=== PATIENT | female | born 1965 | race Caucasian/White ===

== ENCOUNTER 2018-01-09 08:00 | Outpatient (RCR) ==
--- NOTE | 2018-01-08 15:41 | RS.OPPTEV2 ---
Date of Note: 01/08/18 Visit #: 1 Date of Evaluation: 01/08/18 Payer Source: Insurance Treatment Diagnosis: Lumbar radiculopathy History of Condition/Mechanism of Injury:: Patient reports progressive low back pain and radiating symptoms. Reports numbness throughout the inner thighs periodically for the last few months. She attended therapy in this department for similiar symptoms in 2013, with good results. Prior Level of Function.....Patient was independent with: ADL's, Self Care, Work /Vocation, Caregiving, Ambulation/Mobility, Community Integration/Access Functional Limitations: Sleep, Self Care, ADL's, Reaching, Pushing, Pulling, Lifting, Carrying, Sitting, Standing, Bending, Squatting, Ambulation, Community Access/Integration Current Subjective/complaints:: Bessie reports low back pain and radiating symptoms into the LE's. She reports periodic numbness in the inner thighs and when prompted, admits to recent issues with bladder control. Reports the feeling of weakness in her legs with prolonged walking and standing. States she had difficulty shaving her legs and stumbles often, because of impaired sensation in the LE's. She has not had an MRI at this time, because she cannot afford the co-payment. 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 She works 5-6 days a week depending on the needs of her employer. She is unable to afford taking off from work. She reports a great deal of difficulty sleeping due to having to frequently change positions due to pain. Medical History Medical History: Hypertension Medical History Comments:: Mitro valve prolapse Surgical History: Cholecystectomy, Tonsillectomy, (X2) Smoking Status: Current some day smoker Hx Home Medications: Lortab 7.5, Buspar, Flexeril Patient's Goals: Her goal is to get relief of LE symptoms and back pain. Pain Assessment - Pain Description Pain Location: low back and LE pain Pain Description: Radiating Current Pain Intensity: 6/10 Worst Pain Intensity: 10/10 Functional Outcome Measure Oswestry LBP: 52 - G Codes & Severity Modifier G Codes & Modifier: NA Source of G Code score: NA Observation - Observation Posture: Forward Head, Rounded Shoulders, Decreased Lumbar Lordosis Gait - Gait Pattern Gait Comments: Patient demonstrates slight forward flexed posture. She ambulates independently without an assistive device. - ROM Lumbar Flexion: Hand reach to Mid-Shins Sidebending to Left: Reach to Mid-thigh Sidebending to Right: Reach to Lateral Joint Line Comments: Lumbar extension is WFL's. Lumbar flexion demonstrates minimal mobility of the lumbar spine. Patient reports significant increased discomfort with end range right sidebending. Left sidebending is more limited, but patient reports no increased discomfort. - Strength Trunk Rotation: 4- Good- Comments: Bilateral hip flexion, IR, and ER 4/5, All else 4+/5. Bilateral quads and HS 4+/5, ankles 4+/5 to 5/5. - Special Tests ISSAC Test: Negative Right, Positive Left SLR Test: Negative Left, Negative Right Seated Dural Stretch Test: Negative Left, Negative Right SI Joint Compression: Positive Palpation Comments:: Tenderness reported with palpation along the right lumbosacral region and with Central PA's to the lower lumbar spinous processes. Sensation - Sensation Comments: Reports currently having numbness along bilateral inner thighs. Also reports less sensation along posterior and lateral aspect of both legs. Additional Comments: Additional Comments: SLR in supine: left to 40 degrees, right to 45-50 degrees. Interventions - Exercise/Activities/Manual Therapy Exercises/Activities: Patient instructed in HS stretch and pelvic tilts. Discussed symptoms of Cauda Equina Syndrome with patient and advised her to contact her physician's office if she has bladder or bowel incontinence. Manual Therapy: NA HOME EXERCISE PROGRAM: HS stretch and pelvic tilts - Charges Timed Code Treatment Minutes: 0 mins Total Treatment Time: 48 mins Procedures billed for this date of service:: EVAL medium EVALUATION COMPLEXITY LEVEL EVALUATION COMPLEXITY LEVEL: HISTORY: Medium (HX of back pain, progressive LE symptoms), EXAM OF BODY SYSTEMS: Medium, CLINICAL PRESENTATION: Medium, CLINICAL DECISION MAKING: Medium Assessment Assessment: Patient presents to therapy with a diagnosis of Radiculopathy of lumbar region. She reports radiating symptoms into the LE's, including periodic inner thigh numbness. Also admits to mild bladder control issues recently. She demonstrates tenderness along the lumbosacral region, greater on the right, and an imbalance of HS muscle length. Bilateral hips present to be weak. Also presents with a positive ISSAC's on the left LE. She presents with likely overlapping symptoms from the lumbar spine and pelvic dysfunction. She may benefit from stretching and strengtheing exercises to the lumbar spine and LE's to address the above issues and decrease her symptoms. Short Term Goals Goal #1: Bilateral SLR increased to 50 degrees. Goal to be met by: 01/22/18 Goal #2: Patient to report minimal radiating symptoms. Goal to be met by: 01/22/18 Goal #3: Tenderness decreased to minimal along lumbar paraspinals. Goal to be met by: 01/22/18 Prison Goals Goal #1: Patient knows HEP and to continue ex's to maintain functional level at D/C. Goal to be met by: 02/17/18 Goal #2: Score on Oswestry score improved to 30. Goal to be met by: 02/17/18 Goal #3: Patient able to perform all work activities with only minimal discomfort. Goal to be met by: 02/17/18 Goal #4: Patient able to sleep 6 hours without interruption from back pain. Goal to be met by: 02/17/18 Plan - Treatment to be Provided Procedures: Therapeutic Exercises, Therapeutic Activity, Neuromuscular Rehab, Manual Therapy, Patient Education Modalities: Electrical Stimulation, Ultrasound/Phonophoresis, Cryotherapy, Hot Packs - Treatment Plan Frequency: 2-3 X week Duration: 4 weeks ORDER # VISITS AND/OR THROUGH DATE: 02/17/18 - Treatment Code (1) Lumbar radiculopathy Code(s): M54.16 - RADICULOPATHY, LUMBAR REGION Comments: M54.16 (2) Bilateral leg paresthesia Code(s): R20.2 - PARESTHESIA OF SKIN Comments: R20.2
--- NOTE | 2018-01-09 09:54 | RS.OPPTDN ---
Subjective Date of Note: 01/09/18 Visit #: 2 Date of Evaluation: 01/08/18 Payer Source: Insurance Treatment Diagnosis: Lumbar radiculopathy Current Subjective/complaints:: Reports numbness bilateral anterior medial thighs. States she has pain at the lowback and S-I joint region, and often hes bilateral LE aching at night after work. States LB and LE aching prevents her from getting a full nights sleep. Pain Assessment - Pain Description Pain Location: Lowback and hips. Pain Description: Aching Current Pain Intensity: 5/10 - Treatment Modality: Ultrasound Parameters/Method Applied: [id number] to the bilateral lower lumbar paraspinals and S-I joints following EX. Patient Position: Right Sidelying - Heat/Cryotherapy Treatment: Hot Pack ([id number] prior to EX and US. Patient in supine with LE's elevated. ) Interventions - Exercise/Activities/Manual Therapy Exercises/Activities: Patient assisted with bilateral HS, SKTC, piriformis, and figure 4 hip stretching. MET of isometric left hip extension and right hip flexion. Bridging and pelvic tilts. Isometric hip add. Discussed symptoms, benefits of flexibility and MET exercise, and advised patient to contact physician if symptoms get worse or she has loss of function. Total minutes of Exercise: 18mins Manual Therapy: NA HOME EXERCISE PROGRAM: HS stretch and pelvic tilts - Objective Findings Observations,measurements,etc.: HS, piriformis, SKTC, and figure 4 hip stretch. Isometric hip add, bridging, and pelvic tilts. - Charges Timed Code Treatment Minutes: 28mins Total Treatment Time: 43mins Procedures billed for this date of service:: HP, US, EX Assessment: Patient motivated to work on HEP and receptive to patient education. Patient Education: Body/Joint mechanics, Home Exercise Program, Home Safety, Activity Modification Comments: Patient education of dx, mechanics, safety, and HEP. Patient given copy of HEP. Patient demonstrates compliance with HEP?: Yes Short Term Goals Goal #1: Bilateral SLR increased to 50 degrees. Goal to be met by: 01/22/18 Goal #2: Patient to report minimal radiating symptoms. Goal to be met by: 01/22/18 Goal #3: Tenderness decreased to minimal along lumbar paraspinals. Goal to be met by: 01/22/18 Half-Way Goals Goal #1: Patient knows HEP and to continue ex's to maintain functional level at D/C. Goal to be met by: 02/17/18 Progress towards goal: Progressing Goal #2: Score on Oswestry score improved to 30. Goal to be met by: 02/17/18 Goal #3: Patient able to perform all work activities with only minimal discomfort. Goal to be met by: 02/17/18 Goal #4: Patient able to sleep 6 hours without interruption from back pain. Goal to be met by: 02/17/18 Plan PLAN OF CARE EXPIRES ON:: 02/17/18 ORDER # VISITS AND/OR THROUGH DATE: 02/17/18 PLAN: Continue modalities and progress exercise to reduce pain and increase patients functional activity level.
== END 2018-01-10 23:59 ==
PROVIDERS: ATTEND Physical Medicine & Rehabilitation
DX: M54.16 Radiculopathy, lumbar region (principal); R20.2 Paresthesia of skin

== ENCOUNTER 2018-01-31 07:56 | Outpatient (CLI) ==
--- NOTE | 2018-01-31 09:33 | MRI ---
EXAM: MRI lumbar spine without IV contrast. DATE: 31 January 2018. HISTORY: Lumbar radiculopathy. TECHNIQUE: Sagittal axial T1W and T2W sequences of the lumbar spine along with sagittal IR and coron al T2W sequences were obtained using 1.5 Cookie magnet. No IV contrast. COMPARISON: Chest x-ray 05/19/2012. CT abdomen/pelvis 31 October 2009. FINDINGS: There are four [id number] lumbar vertebra. No lumbar scoliosis is evident. No acute lumbar fracture, subluxation, osseous malignancy, or pars interarticularis defect is demonstrated. Lumbar vertebra are normal in height. Bone marrow signal is overall normal. Chronic Schmorl's nodes are seen at L2 and L3. Moderate/marked disc space narrowing and small anterior osteophytes are pres ent at L4-S1. Remaining intervertebral discs are normal in height. No acute sacral fracture or stre ss reaction is identified. SI joints are unremarkable. Conus medullaris terminates at T12-L1. Visi ble spinal cord is normal. No retroperitoneal lymphadenopathy, paraspinal mass, or aortic aneurysm is detected. Paraspinal musc ulature is symmetric bilaterally. Visible portions of the liver, spleen, adrenal glands and kidneys are normal. Small number of descending and sigmoid colon diverticuli are present. Segmental analysis: T11-12: Minor posterior disc bulge and mild facet arthropathy cause minor right foraminal narrowing. No central canal stenosis. T12-L1: Normal. L1-2: Normal. L2-3: Minor concentric disc bulge with superimposed left paracentral disc protrusion (2.3 mm AP x 4. 7 mm transverse) and minor facet arthropathy cause minimal right and mild/moderate left foraminal shannon noses. No central canal stenosis. L3-4: Small posterior to foraminal disc bulge and minor facet arthropathy cause mild central canal s tenosis and mild/moderate narrowing at the opening to each foramen. L4-S1: Small concentric disc bulge, superimposed right paracentral disc extrusion (5.5 mm AP right x 7 mm transverse x 3 mm behind the S1 superior endplate), mild facet arthropathy and mild ligamentum flavum hypertrophy cause mild central canal stenosis and moderate/marked narrowing at the opening to each foramen. Each L4 nerve root appears to contact the disc bulge near the lateral margin of the fo ramen. IMPRESSIONS: 1. Four lumbar vertebra (normal variation). 2. L-spine mild spondylosis, minor/mild facet arthropathy and multilevel DDD (mervat. L5-S1). 3. Multilevel lumbar foraminal stenoses as described above. Each L4 nerve root contacts the disc bu lge near the foramen, and could be sources for pain/radiculopathy. 4. And mild central canal stenoses at L3-4 and L4-5. 5. Chronic, small Schmorl's nodes at L2 and L3. 6. Mild descending and sigmoid colon diverticulosis.
== END 2018-01-31 07:57 | disposition home or self-care (01) ==
LOC: RAD 07:56
PROVIDERS: ATTEND Physical Medicine & Rehabilitation
DX: M54.16 Radiculopathy, lumbar region (principal)

== ENCOUNTER 2018-02-06 08:00 | Outpatient (RCR) ==
--- NOTE | 2018-01-15 10:24 | RS.OPPTDN ---
Subjective Date of Note: 01/15/18 Visit #: 3 Date of Evaluation: 01/08/18 Payer Source: Insurance Treatment Diagnosis: Lumbar radiculopathy Current Subjective/complaints:: Patient reports not sleeping well last night due to leg cramps.She is doing her HEP as recommended. Pain Assessment - Pain Description Pain Location: lumbar and both LE's Pain Description: Radiating Current Pain Intensity: 8/10 before treatment Other Comments regarding Pain:: 4/10 after PT session - Treatment Modality: Ultrasound Parameters/Method Applied: 10 mins. @ 1.5 w/cm2 to lumbar ,continuous mode Patient Position: Right Sidelying - Heat/Cryotherapy Treatment: Hot Pack (20 mins. prior to US and exercises) Interventions - Exercise/Activities/Manual Therapy Exercises/Activities: Patient instructed in pelvic tilts,SKTC,DKTC,piriformis stretches with tactile cues for hand placement,90/90 hamstring stretches,LTR in hooklying position. Total minutes of Exercise: 20 Manual Therapy: NA Total minutes of Manual Therapy: 0 HOME EXERCISE PROGRAM: HS stretch and pelvic tilts - Charges Timed Code Treatment Minutes: 30 Total Treatment Time: 50 Procedures billed for this date of service:: hp,US,ex Assessment: Patient reports relief after treatment today.We again discussed the urinary incontinence as she reports today it is more frequent.She has a Charanjit appt this Saturday,and we emphasized for her to inform the fo her symptoms.She reports stretch discomfort ,but no elevation of back or leg pain while doing the exercises.She requires tactile and verbal cues for proper piriformis stretch. Patient Education: Education of diagnosis, Body/Joint mechanics, Home Exercise Program, Home Safety, Activity Modification, Education of Plan of Care Patient demonstrates compliance with HEP?: Yes Short Term Goals Goal #1: Bilateral SLR increased to 50 degrees. Goal to be met by: 01/22/18 Progress towards Goal:: Progressing Goal #2: Patient to report minimal radiating symptoms. Goal to be met by: 01/22/18 Progress towards Goal:: No Change Goal #3: Tenderness decreased to minimal along lumbar paraspinals. 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 Goal to be met by: 02/17/18 Progress towards goal: Progressing Goal #2: Score on Oswestry score improved to 30. Goal to be met by: 02/17/18 Goal #3: Patient able to perform all work activities with only minimal discomfort. Goal to be met by: 02/17/18 Goal #4: Patient able to sleep 6 hours without interruption from back pain. Goal to be met by: 02/17/18 Plan PLAN OF CARE EXPIRES ON:: 02/17/18 ORDER # VISITS AND/OR THROUGH DATE: 02/17/18 PLAN: Continue PT to reduce /eliminate back pain,educate patient for improved body mechanics for safer work tasks.
--- NOTE | 2018-01-16 12:07 | RS.OPPTDN ---
Subjective Date of Note: 01/16/18 Visit #: 4 Date of Evaluation: 01/08/18 Payer Source: Insurance Treatment Diagnosis: Lumbar radiculopathy Current Subjective/complaints:: Patient reports a mild improvement in back pain , but no improvement in radicular symptoms. Pain Assessment - Pain Description Pain Location: back pain and bilateral LE pain Current Pain Intensity: 6/10 - Treatment Modality: Ultrasound Parameters/Method Applied: [id number] US at 1.5w/cm2 to the bilateral lumbar paraspinals. Patient Position: Right Sidelying - Heat/Cryotherapy Treatment: Hot Pack ([id number] to the lowback prior to US and EX. Patient in supine. ) Interventions - Exercise/Activities/Manual Therapy Exercises/Activities: Assisted stretching of the bilateral HS, SKTC, DKTC, piriformis, and figure 4 stretching. Pelvic tilts, isometric hip flexion, isometric hip adduction. Cues for proper muscle engagement with core/isometric exercises. Isometric trunk rotation. Total minutes of Exercise: 14mins Manual Therapy: NA HOME EXERCISE PROGRAM: HS stretch and pelvic tilts, piriformis stretch - Charges Timed Code Treatment Minutes: 14mins Total Treatment Time: 34mins Procedures billed for this date of service:: HP, Estim unatteded, EX Assessment: Patient reporting some improvement in back pain. She is encouraged to report radicular symptoms to physician. Patient Education: Education of diagnosis, Body/Joint mechanics, Home Exercise Program Patient demonstrates compliance with HEP?: Yes Short Term Goals Goal #1: Bilateral SLR increased to 50 degrees. Goal to be met by: 01/22/18 Progress towards Goal:: Progressing Goal #2: Patient to report minimal radiating symptoms. Goal to be met by: 01/22/18 Progress towards Goal:: No Change Goal #3: Tenderness decreased to minimal along lumbar paraspinals. 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 Goal to be met by: 02/17/18 Progress towards goal: Progressing Goal #2: Score on Oswestry score improved to 30. Goal to be met by: 02/17/18 Goal #3: Patient able to perform all work activities with only minimal discomfort. Goal to be met by: 02/17/18 Goal #4: Patient able to sleep 6 hours without interruption from back pain. Goal to be met by: 02/17/18 Plan PLAN OF CARE EXPIRES ON:: 02/17/18 ORDER # VISITS AND/OR THROUGH DATE: 02/17/18 PLAN: Continue modalities and progressive exercise to reduce pain and increase patients functional activity level at work and home.
--- NOTE | 2018-01-20 16:18 | RS.OPPTDN ---
Subjective Date of Note: 01/20/18 Visit #: 5 Date of Evaluation: 01/08/18 Payer Source: Insurance Treatment Diagnosis: Lumbar radiculopathy Current Subjective/complaints:: Patient reports busy day at work,is hurting alot ,with the tingling going dowm below the knees today.She had follow -up appt. last Saturday,is scheduled for MRI. Pain Assessment - Pain Description Pain Location: lumbar and both LE's Pain Description: Radiating, Aching, Chronic Current Pain Intensity: 8/10 Other Comments regarding Pain:: 5/10 when supine or sidelying - Treatment Modality: Ultrasound Parameters/Method Applied: 10 mins. @ 1.5 w/cm2 ,continuous mode to lumbar region ( L4,L5,S1 level ) Patient Position: Right Sidelying - Heat/Cryotherapy Treatment: Hot Pack (20 mins. prior to US and exercises) Interventions - Exercise/Activities/Manual Therapy Exercises/Activities: 20 mins. of gentle stretches including pelvic tilts,SKTC, DKTC,hamstring stretches. Total minutes of Exercise: 20 Manual Therapy: NA Total minutes of Manual Therapy: 0 HOME EXERCISE PROGRAM: HS stretch and pelvic tilts, piriformis stretch - Charges Timed Code Treatment Minutes: 30 Total Treatment Time: 50 Procedures billed for this date of service:: hp,US,ex 1 Assessment: Patient reports relief with large bolster under knees when on her back,but very tender to palpate today at the L4,L5,S1 level.The exercises do not elevate her pain ,but also do not relieve her pain today.The radiculopathy is worsened since last session, now below the knees.Instructed to try to sleep with the LE's elevated as high as possible for some relief. Patient Education: Education of diagnosis, Body/Joint mechanics, Home Exercise Program, Home Safety, Activity Modification, Education of Plan of Care Patient demonstrates compliance with HEP?: Yes Short Term Goals Goal #1: Bilateral SLR increased to 50 degrees. Goal to be met by: 01/22/18 Progress towards Goal:: Progressing Goal #2: Patient to report minimal radiating symptoms. Goal to be met by: 01/22/18 Progress towards Goal:: No Change Goal #3: Tenderness decreased to minimal along lumbar paraspinals. 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 Goal to be met by: 02/17/18 Progress towards goal: Progressing Goal #2: Score on Oswestry score improved to 30. Goal to be met by: 02/17/18 Goal #3: Patient able to perform all work activities with only minimal discomfort. Goal to be met by: 02/17/18 (varies ) Goal #4: Patient able to sleep 6 hours without interruption from back pain. Goal to be met by: 02/17/18 Progress towards goal: No Change Plan PLAN OF CARE EXPIRES ON:: 02/17/18 ORDER # VISITS AND/OR THROUGH DATE: 02/17/18 PLAN: Contine PT to reduce pain in the back and LE's.
--- NOTE | 2018-01-23 09:26 | RS.OPPTDN ---
Subjective Date of Note: 01/23/18 Visit #: 6 Date of Evaluation: 01/08/18 Payer Source: Insurance Treatment Diagnosis: Lumbar radiculopathy Current Subjective/complaints:: Patient reports continued numbness in the bilateral anterior upper thigh. States she worked yesterday and back pain and radicular symptoms seems aggravated. Following Estim today, patient reports she feels more mobile and has no back pain. Pain Assessment - Pain Description Pain Location: lowback, hips, numbness anterior thighs Current Pain Intensity: mod, no back pain after treatment - Treatment Modality: Electrical Stim Unattended Parameters/Method Applied: [id number] HVGC to 115p.v. with 4 large pads cross current to the bilateral lowback and S-I joints with HP prior to EX. Patient Position: Supine - Heat/Cryotherapy Treatment: Hot Pack (with Estim ) Interventions - Exercise/Activities/Manual Therapy Exercises/Activities: 16mins. of gentle stretches including hamstring, SKTC, DKTC, piriformis, and LTR. Isometric hip add and pelvic tilts. Total minutes of Exercise: 16mins Manual Therapy: NA HOME EXERCISE PROGRAM: HS stretch and pelvic tilts, piriformis stretch - Charges Timed Code Treatment Minutes: 16mins Total Treatment Time: 40mins Procedures billed for this date of service:: HP, Estim unattended, EX Assessment: Modalities and stretching giving patient some temporary relieft of back pain. Numbness continues in the anterior upper thighs without improvement. Patient Education: Body/Joint mechanics, Home Exercise Program, Home Safety, Activity Modification Comments: Patient education focus on rest and gentle exercise today as patient is off work. Also, instruction of safe lifting and body mechanics with work activity. Patient demonstrates compliance with HEP?: Yes Short Term Goals Goal #1: Bilateral SLR increased to 50 degrees. Goal to be met by: 01/22/18 Progress towards Goal:: Progressing Goal #2: Patient to report minimal radiating symptoms. Goal to be met by: 01/22/18 Progress towards Goal:: No Change Goal #3: Tenderness decreased to minimal along lumbar paraspinals. 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 Goal to be met by: 02/17/18 Progress towards goal: Partially Met Goal #2: Score on Oswestry score improved to 30. Goal to be met by: 02/17/18 Goal #3: Patient able to perform all work activities with only minimal discomfort. Goal to be met by: 02/17/18 (varies ) Goal #4: Patient able to sleep 6 hours without interruption from back pain. Goal to be met by: 02/17/18 Progress towards goal: No Change Plan PLAN OF CARE EXPIRES ON:: 02/17/18 ORDER # VISITS AND/OR THROUGH DATE: 02/17/18 PLAN: Continue with treatment in attempt to reduce pain and radicular symptoms.
--- NOTE | 2018-01-27 09:02 | RS.OPPTDN ---
Subjective Date of Note: 01/27/18 Visit #: 7 Date of Evaluation: 01/08/18 Payer Source: Insurance Treatment Diagnosis: Lumbar radiculopathy Current Subjective/complaints:: Patient reports having a bad weekend. States back pain is high and she feels like her muscles are swollen at the right upper gluteal area. She continues to report numbness at the anterior thighs, such as the "saddle" pattern. Pain Assessment - Pain Description Pain Location: lowback and upper gluts Pain Description: Aching, Acute Current Pain Intensity: 9/10 prior to and 6/10 following treatment Other Comments regarding Pain:: Patient reports pain at 9-10/10 o tana the weekend. States is continues to be high this morning. She reports modalities and gentle stretching decreased her pain to 6/10. - Treatment Modality: Electrical Stim Unattended Parameters/Method Applied: [id number] HVGC to 145p.v. with 4 large pads, cross current, to the bilateral lower lumbar paraspinals and S-I joints with HP. Patient Position: Supine - Heat/Cryotherapy Treatment: Hot Pack (with Estim ) Interventions - Exercise/Activities/Manual Therapy Exercises/Activities: Gentle stretches of hamstring, SKTC, DKTC, piriformis, and LTR. Isometric hip add and pelvic tilts. No new additions today. Total minutes of Exercise: 12mins Manual Therapy: NA HOME EXERCISE PROGRAM: HS stretch and pelvic tilts, piriformis stretch - Charges Timed Code Treatment Minutes: 12mins Total Treatment Time: 32mins Procedures billed for this date of service:: HP, Estim unattended, EX Assessment: Patient consistently reports numbness in the inner thigh and a high level of LBP over the weekend. Patient Education: Education of diagnosis, Home Exercise Program Comments: Patient has been instructed that should her radicular symptoms worsen or she lose bowel or bladder control, to go to the nearest ER for medical treatment. Patient demonstrates compliance with HEP?: Yes Short Term Goals Goal #1: Bilateral SLR increased to 50 degrees. Goal to be met by: 01/22/18 Progress towards Goal:: Progressing Goal #2: Patient to report minimal radiating symptoms. Goal to be met by: 01/22/18 Progress towards Goal:: No Change Goal #3: Tenderness decreased to minimal along lumbar paraspinals. 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 Goal to be met by: 02/17/18 Progress towards goal: Partially Met Goal #2: Score on Oswestry score improved to 30. Goal to be met by: 02/17/18 Goal #3: Patient able to perform all work activities with only minimal discomfort. Goal to be met by: 02/17/18 (varies ) Goal #4: Patient able to sleep 6 hours without interruption from back pain. Goal to be met by: 02/17/18 Progress towards goal: No Change Plan PLAN OF CARE EXPIRES ON:: 02/17/18 ORDER # VISITS AND/OR THROUGH DATE: 02/17/18 PLAN: See patient this week and she will haave an MRI on Saturday.
--- NOTE | 2018-01-30 09:04 | RS.OPPTDN ---
Subjective Date of Note: 01/30/18 Visit #: 8 Date of Evaluation: 01/08/18 Payer Source: Insurance Treatment Diagnosis: Lumbar radiculopathy Current Subjective/complaints:: Patient reports the tingling in her legs is terrible,also still having urinary incontinence/frequency. Pain Assessment - Pain Description Pain Location: both legs,anterior thighs,pelvic girdle region Pain Description: Radiating, Aching, Chronic Current Pain Intensity: 7/10 Other Comments regarding Pain:: 4/10 after session today Interventions - Exercise/Activities/Manual Therapy Exercises/Activities: Gentle stretches of hamstring, SKTC, DKTC, piriformis, and LTR. Isometric hip add and pelvic tilts. Total minutes of Exercise: 20 Manual Therapy: NA Total minutes of Manual Therapy: 0 HOME EXERCISE PROGRAM: HS stretch and pelvic tilts, piriformis stretch - Charges Timed Code Treatment Minutes: 30 Total Treatment Time: 50 Procedures billed for this date of service:: hp,US,ex 1 Assessment: Patient reports relief after session today,no elevation of pain doing exercises in supine.She reports the tingling /pain generally increases the longer she is on her feet,and also with prolonged sitting.She is vry compliabnt to all recommendations.She is scheduled to have MRI tomorrow. Patient Education: Body/Joint mechanics, Home Exercise Program, Home Safety, Activity Modification, Education of Plan of Care Patient demonstrates compliance with HEP?: Yes Short Term Goals Goal #1: Bilateral SLR increased to 50 degrees. Goal to be met by: 01/22/18 Progress towards Goal:: Progressing Goal #2: Patient to report minimal radiating symptoms. Goal to be met by: 01/22/18 Progress towards Goal:: No Change Goal #3: Tenderness decreased to minimal along lumbar paraspinals. 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 Goal to be met by: 02/17/18 Progress towards goal: Partially Met Goal #2: Score on Oswestry score improved to 30. Goal to be met by: 02/17/18 Goal #3: Patient able to perform all work activities with only minimal discomfort. Goal to be met by: 02/17/18 (varies ) Goal #4: Patient able to sleep 6 hours without interruption from back pain. Goal to be met by: 02/17/18 Progress towards goal: No Change Plan PLAN OF CARE EXPIRES ON:: 02/17/18 ORDER # VISITS AND/OR THROUGH DATE: 02/17/18 PLAN: Continue PT to reduce/eliminate LBP.
--- NOTE | 2018-02-05 08:12 | RS.CXNS ---
Date of scheduled appointment: 02/05/18 Type: Cancel Reason for Cancel/NS: Called ,left message ,cancelled due to LE/back pain.
--- NOTE | 2018-02-06 09:01 | RS.OPPTDN ---
Subjective Date of Note: 02/06/18 Visit #: 9 Date of Evaluation: 01/08/18 Payer Source: Insurance Treatment Diagnosis: Lumbar radiculopathy Current Subjective/complaints:: Patient reports she has not heard from the MRI results at this time.She continues to report finding any position of relief from the back pain .She still reports the urinary incontinence ,and the inability to stop the flow. Pain Assessment - Pain Description Pain Location: lumbar,both LE's Pain Description: Radiating, Aching, Chronic Current Pain Intensity: /10 - Treatment Modality: Ultrasound Parameters/Method Applied: 10 mins. @ 1.5 w/cm2,continuous mode to lumbar Patient Position: Right Sidelying - Heat/Cryotherapy Treatment: Hot Pack (20 mins. prior to US) Interventions - Exercise/Activities/Manual Therapy Exercises/Activities: HEP review only todayGentle stretches of hamstring, SKTC, DKTC, piriformis, and LTR. Isometric hip add and pelvic tilts.Patient reports doing them without difficulty. Total minutes of Exercise: 0 Manual Therapy: NA HOME EXERCISE PROGRAM: HS stretch and pelvic tilts, piriformis stretch - Charges Timed Code Treatment Minutes: 10 Total Treatment Time: 30 Procedures billed for this date of service:: hp,US Assessment: Patient is motivated to improve ,doing her HEP consistently,but reports only gets very minimal relief from LBP and radiculopathy.We discussed initiating the D/C plan if no change next week. Patient Education: Education of Plan of Care Patient demonstrates compliance with HEP?: Yes Short Term Goals Goal #1: Bilateral SLR increased to 50 degrees. Goal to be met by: 01/22/18 (does elicit pain bilaterally) Progress towards Goal:: No Change Goal #2: Patient to report minimal radiating symptoms. Goal to be met by: 01/22/18 Progress towards Goal:: No Change Goal #3: Tenderness decreased to minimal along lumbar paraspinals. 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 Goal to be met by: 02/17/18 Progress towards goal: Met Goal #2: Score on Oswestry score improved to 30. Goal to be met by: 02/17/18 Goal #3: Patient able to perform all work activities with only minimal discomfort. Goal to be met by: 02/17/18 (varies ) Progress towards goal: No Change Goal #4: Patient able to sleep 6 hours without interruption from back pain. Goal to be met by: 02/17/18 Progress towards goal: No Change Plan PLAN OF CARE EXPIRES ON:: 02/17/18 ORDER # VISITS AND/OR THROUGH DATE: 02/17/18 PLAN: Continue PT one more sesion next week ,initiate D/C plan if no improvement.
== END 2018-02-09 23:59 ==
PROVIDERS: ATTEND Physical Medicine & Rehabilitation
DX: M54.16 Radiculopathy, lumbar region (principal); R20.2 Paresthesia of skin